=== PATIENT | female | born 1990 | race Caucasian/White ===

== ENCOUNTER 2022-11-01 12:00 | Outpatient (REF) | payer BC, SELFPAY ==
--- NOTE | 2022-11-01 11:00 | PAPFT_PTH ---
PATIENT: Jil Malhotra LOC: [facility] U#:[id number] AGE/SX: 32/F ROOM: RE11/01/[address]: Emma Norris : 1990 BED: DIS: 11/02/2022 SPEC #: [id number] RECD: 11/02/22 15:19 STATUS: SANDRITA REQ #: [id number] CHETAN: 11/01/22 11:[address]: Emma Norris [facility]PT[facility] Cytology RECD BY: Geri Elias ENTERED: 11/02/22 15:20 SP TYPE: PAPFT OTHR DR: Sarah Domínguez Tissues: 1 - CX/ENDOCX FOR PAP SMEARS Procedures: PAP THIN PREP/[facility] Screening HPV DNA PROBE Comments: [id number] (CHLAMYDIA/GC)
[2022-11-05 13:43] LABS: Chlamydia Result Negative (Negative); GC Result Negative (Negative)
== END 2022-11-02 08:27 | disposition home or self-care (01) ==
LOC: LBN 12:00
PROVIDERS: PCP Family Medicine; Visit Provider Naturopath
DX: Z12.4 Encounter for screening for malignant neoplasm of cervix (principal); Z11.3 Encounter for screening for infections with a predominantly sexual mode of transmission; Z11.51 Encounter for screening for human papillomavirus (HPV)
CPT/HCPCS: 87491; 87591; 88142; 87624